=== PATIENT | male | born 1965 | race Caucasian/White ===

== ENCOUNTER 2017-12-02 16:49 | Inpatient (IN) | payer OTHER ==
[~2017-12-02] VITALS: Ht 185.4 cm; Wt 97.8 kg
[2017-12-02 16:55] LABS: BASOPHIL (%) 0.6 % (0-1); BASOPHIL COUNT 0.1 K/uL (0-0.1); EOSINOPHIL (%) 0.4 % (0-5); EOSINOPHIL COUNT 0.1 K/uL (0-0.3); HEMATOCRIT 47.3 % (38.0-50.0); HEMOGLOBIN 17.1 G/DL (12.5-16.6); IMMATURE GRANULOCYTE (%) 0.8 % (0.0-0.7); LYMPHOCYTE (%) 23.7 % (15-42); LYMPHOCYTE COUNT 2.6 K/uL (1.0-2.8); MCH 31.7 PG (29.0-34.0); MCHC 36.2 G/DL (30.0-36.0); MCV 87.8 FL (86-99); MONOCYTE (%) 9.9 % (3-12); MONOCYTE COUNT 1.1 K/uL (0-0.8); NEUTROPHIL (%) 64.6 % (45-76); NEUTROPHIL COUNT 7.2 K/uL (1.8-6.4); PLATELET COUNT 318 K/uL (156-360); RBC DIS.WIDTH-CV 12.9 % (11.8-14.6); RBC DIS.WIDTH-SD 41.5 % (39-53); RED BLOOD COUNT 5.39 M/uL (4.00-5.50); WHITE BLOOD COUNT 11.1 K/uL (4.1-10.2)
[2017-12-02 17:03] LABS: AMYLASE 64 IU/L (1-118); CHLORIDE 107 mEq/L (99-109); POTASSIUM 3.9 mEq/L (3.7-5.4); SODIUM 138 mEq/L (136-147)
[2017-12-02 17:05] LABS: GLUCOSE 119 mg/dL (70-99)
[2017-12-02 17:08] LABS: SERUM ETHYL ALCOHOL < 10 mg/dL
[2017-12-02 17:09] LABS: CREATININE 1.5 mg/dL (0.6-1.3)
[2017-12-02 17:10] LABS: GFR ESTIMATE (CALCULATED) 52 mL/min/ (58.99-99999); UREA NITROGEN (BUN) 16 mg/dL (9-23)
[2017-12-02 17:12] LABS: LIPASE 42 U/L (1.0-51.0)
[2017-12-02] MEDS ORDERED: COLCRYS0.6 MG PO (17:57)
[2017-12-02] MEDS ORDERED: ALLEGRA-D 121 TABLET PO (17:57)
[2017-12-02] MEDS ORDERED: ASCORBIC ACID100 MG PO (17:58)
[2017-12-02 18:34] LABS: PTT 27.3 SEC (25-37)
[2017-12-02 18:45] LABS: TROP-I INTERPRETATION NEGATIVE; TROPONIN-I < 0.01 ng/mL (0.0-0.30)
[2017-12-02 20:44] LABS: APPEARANCE CLEAR ((CLEAR)); BILIRUBIN NEGATIVE; BLOOD NEGATIVE; COLOR YELLOW ((YELLOW)); GLUCOSE (STRIP) NEGATIVE; KETONES 20; LEUKOCYTES NEGATIVE; NITRITE NEGATIVE; PROTEIN (STRIP) 30; SPECIFIC GRAVITY 1.044 (1.000-1.030); UCUL ADDED? NO; UROBILINOGEN 0.2 MG/DL (0.2-1.0)
[2017-12-02 20:55] LABS: AMPHETAMINE NEGATIVE (500 ng/mL); BARBITURATES NEGATIVE (200 ng/mL); BENZODIAZEPINES NEGATIVE (150 ng/mL); BUPRENORPHINE NEGATIVE (10 ng/mL); COCAINE NEGATIVE (150 ng/mL); METHADONE NEGATIVE (200 ng/mL); METHAMPHETAMINE NEGATIVE (500 ng/mL); OPIATES (MORPHINE) NEGATIVE (100 ng/mL); OXYCODONE NEGATIVE (100 ng/mL); PHENCYCLIDINE NEGATIVE (25 ng/mL); PROPOXYPHENE NEGATIVE (300 ng/mL); THC CANNABINOIDS NEGATIVE (50 ng/mL); TRICYCLIC ANTIDEPRESSANTS NEGATIVE (300 ng/mL)
[2017-12-02 22:19] VITALS: BP 109/60
[2017-12-02 23:39] VITALS: BP 107/58
[2017-12-03 04:35] VITALS: BP 95/53
[2017-12-03 07:08] LABS: HEMATOCRIT 42.4 % (38.0-50.0); MCH 30.1 PG (29.0-34.0); MCHC 33.3 G/DL (30.0-36.0); MCV 90.6 FL (86-99); PLATELET COUNT 242 K/uL (156-360); RBC DIS.WIDTH-CV 13.2 % (11.8-14.6); RBC DIS.WIDTH-SD 43.4 % (39-53); RED BLOOD COUNT 4.68 M/uL (4.00-5.50); WHITE BLOOD COUNT 10.7 K/uL (4.1-10.2)
[2017-12-03 07:09] LABS: HEMOGLOBIN 14.1 G/DL (12.5-16.6)
[2017-12-03 07:22] LABS: ALBUMIN 3.8 G/DL (3.2-4.8); ALKALINE PHOSPHATASE 71 IU/L (3-129); ALT (GPT) 44 IU/L (3-49); AST (GOT) 31 IU/L (2-34); CHLORIDE 105 MEQ/L (99-109); GFR ESTIMATE (CALCULATED) > 59 mL/min/ (58.99-99999); GLUCOSE 127 mg/dL (70-99); POTASSIUM 3.9 MEQ/L (3.7-5.4); SODIUM 141 MEQ/L (136-147); TOTAL PROTEIN 5.5 G/DL (6.4-8.3); UREA NITROGEN (BUN) 11 mg/dL (9-23)
[2017-12-03 08:23] VITALS: BP 124/73
[2017-12-03 11:20] VITALS: BP 122/66
[2017-12-03 16:16] VITALS: BP 130/70
[2017-12-03 19:28] VITALS: BP 124/69
[2017-12-03 23:15] VITALS: BP 124/71
[2017-12-04 07:08] LABS: BASOPHIL (%) 0.3 % (0-1); EOSINOPHIL (%) 0.4 % (0-5); HEMATOCRIT 38.4 % (38.0-50.0); HEMOGLOBIN 13.4 G/DL (12.5-16.6); IMMATURE GRANULOCYTE (%) 0.3 % (0.0-0.7); LYMPHOCYTE (%) 13.1 % (15-42); LYMPHOCYTE COUNT 1.3 K/uL (1.0-2.8); MCH 31.2 PG (29.0-34.0); MCHC 34.9 G/DL (30.0-36.0); MCV 89.3 FL (86-99); MONOCYTE (%) 13.4 % (3-12); MONOCYTE COUNT 1.3 K/uL (0-0.8); NEUTROPHIL (%) 72.5 % (45-76); NEUTROPHIL COUNT 7.2 K/uL (1.8-6.4); PLATELET COUNT 188 K/uL (156-360); RBC DIS.WIDTH-CV 13.2 % (11.8-14.6); RBC DIS.WIDTH-SD 43.3 % (39-53); WHITE BLOOD COUNT 9.9 K/uL (4.1-10.2)
[2017-12-04 07:53] LABS: CHLORIDE 100 MEQ/L (99-109); CREATININE 0.8 MG/DL (0.6-1.3); GFR ESTIMATE (CALCULATED) > 59 mL/min/ (58.99-99999); GLUCOSE 111 mg/dL (70-99); SODIUM 133 MEQ/L (136-147); UREA NITROGEN (BUN) 7 mg/dL (9-23)
[2017-12-04 08:32] VITALS: BP 122/75
[2017-12-04 12:16] VITALS: BP 129/76
[2017-12-04 19:54] VITALS: BP 133/75
[2017-12-04 23:50] VITALS: BP 138/67
[2017-12-05 03:45] VITALS: BP 130/72
[2017-12-05 08:00] VITALS: BP 139/83
[2017-12-05 11:57] VITALS: BP 130/83
[2017-12-05 15:30] VITALS: BP 118/66
[2017-12-05 19:15] VITALS: BP 128/73
[2017-12-05 23:09] VITALS: BP 120/69
[2017-12-06 03:58] VITALS: BP 137/77
[2017-12-06 06:57] LABS: BASOPHIL (%) 0.5 % (0-1); BASOPHIL COUNT 0.1 K/uL (0-0.1); EOSINOPHIL (%) 1.4 % (0-5); EOSINOPHIL COUNT 0.1 K/uL (0-0.3); HEMATOCRIT 37.7 % (38.0-50.0); IMMATURE GRANULOCYTE (%) 0.3 % (0.0-0.7); LYMPHOCYTE (%) 12.3 % (15-42); LYMPHOCYTE COUNT 1.2 K/uL (1.0-2.8); MCH 30.8 PG (29.0-34.0); MCHC 34.5 G/DL (30.0-36.0); MCV 89.3 FL (86-99); MONOCYTE (%) 14.8 % (3-12); MONOCYTE COUNT 1.5 K/uL (0-0.8); NEUTROPHIL (%) 70.7 % (45-76); PLATELET COUNT 219 K/uL (156-360); RBC DIS.WIDTH-SD 42.5 % (39-53); RED BLOOD COUNT 4.22 M/uL (4.00-5.50); WHITE BLOOD COUNT 9.9 K/uL (4.1-10.2)
[2017-12-06 07:17] VITALS: BP 121/72
[2017-12-06 07:17] LABS: CHLORIDE 101 MEQ/L (99-109); CREATININE 0.8 MG/DL (0.6-1.3); GFR ESTIMATE (CALCULATED) > 59 mL/min/ (58.99-99999); GLUCOSE 108 mg/dL (70-99); POTASSIUM 3.9 MEQ/L (3.7-5.4); SODIUM 136 MEQ/L (136-147); UREA NITROGEN (BUN) 8 mg/dL (9-23)
[2017-12-06 11:04] VITALS: BP 124/75
[2017-12-06] MEDS ORDERED: MAG-AL PLUS SUS30 ML PO (12:02)
[2017-12-06] MEDS ORDERED: TYLENOL REGULA325 MG PO (12:02)
[2017-12-06] MEDS ORDERED: POLYETHYLENE GL17 GM PO (12:02)
[2017-12-06] MEDS ORDERED: ENDOCET 5-3251 EACH PO (12:02)
[2017-12-06] MEDS ORDERED: OXYCODONE-APAP1 EACH PO (12:02)
[2017-12-06] MEDS ORDERED: DOCUSATE SODIU100 MG PO (12:02)
[2017-12-06] MEDS ORDERED: Milk Of Magnesia,MOM PO (12:02)
[2017-12-06] MEDS ORDERED: SENNA LAX8.6 MG PO (12:02)
[2017-12-06] MEDS ORDERED: ONDANSETRON ODT4 MG PO (12:02)
[2017-12-06] MEDS ORDERED: BISACODYL5 MG PO (12:15)
[2017-12-06] MEDS ORDERED: PROMETHAZINE HC25 M1 PO (12:15)
[2017-12-06] MEDS ORDERED: BISAC-EVAC10 MG PR (12:15)
[2017-12-06] MEDS ORDERED: [UNRECOGNIZED DRUG - OTHER] PR (12:15)
[2017-12-06 15:05] VITALS: BP 118/65
[2017-12-06 19:44] VITALS: BP 122/77
[2017-12-06 23:06] VITALS: BP 130/76
[2017-12-07 08:58] VITALS: BP 119/78
[2017-12-07 11:32] VITALS: BP 126/75
== END 2017-12-07 16:59 | DRG 563 ==
LOC: TRA 16:49 → 3EAST 18:21 → EDOF 18:21 → ENRESERV 18:22 → 3EAST 22:01
PROVIDERS: Emergency Medicine; Physician Assistant; Student in an Organized Health Care Education/Training Program
PROC: 0RSSXZZ Reposition Right Carpometacarpal Joint, External Approach (ICD-10-PCS; principal; 2017-12-02)
DX: S82.841A Displaced bimalleolar fracture of right lower leg, initial encounter for closed fracture (principal); S06.0X1A Concussion with loss of consciousness of 30 minutes or less, initial encounter; S42.021A Displaced fracture of shaft of right clavicle, initial encounter for closed fracture; S63.044A Dislocation of carpometacarpal joint of right thumb, initial encounter; S80.01XA Contusion of right knee, initial encounter; I10 Essential (primary) hypertension; M10.9 Gout, unspecified; S00.81XA Abrasion of other part of head, initial encounter; V28.4XXA Motorcycle driver injured in noncollision transport accident in traffic accident, initial encounter; E66.9 Obesity, unspecified; Y92.410 Unspecified street and highway as the place of occurrence of the external cause; Z68.28 Body mass index [BMI] 28.0-28.9, adult; M11.20 Other chondrocalcinosis, unspecified site
CPT/HCPCS: 70450; 70486; 71260; 72125; 72129; 72132; 73000; 73030; 73070; 73110; 73200; 73560; 73600; 74177; 80048; 80053; 81003; 82150; 83690; 84484; 85025; 85027; 85610; 85730; 86850; 86900; 86901; 97530 GP; 99281; 99285; G0480; J2270; J3010; J7120; J7509